=== PATIENT | male | born 1940 | race African-American/Black ===

== ENCOUNTER 2016-10-30 05:37 | Inpatient (IN) | payer MEDICARE, OTHER ==
[~2016-10-30] VITALS: Ht 175.3 cm; Wt 95.9 kg
[2016-10-30] VITALS (13 sets, daily range): BP systolic 109–153; BP diastolic 54–88; PULSE 53–76; RESP 14–18; O2SAT 93–100
[2016-10-30] MEDS: Lactated Ringer's 1,000 ML IV SCH ×3 (05:00→07:31)
[~2016-10-30 05:37] MED LIST: ACET-2766 PO; AMLO10TA3 PO; BUSP10TA2 PO; CALC-72 PO; CITA20TA11 PO; FLUT16SP NS; LISI40TA PO; TAMS0.4C98 PO
[2016-10-30] MEDS ORDERED: Vancomycin 1,000mg/200 mL NS IV ONE (05:57)
[2016-10-30] MEDS ORDERED: Vancomycin Inj 1,500 MG in 0.9% Sodium Chloride 500 ML IV ONE (06:00)
[2016-10-30] MEDS ORDERED: CeFAZolin Inj 2 GM in IV Premix 1 EACH IV ONE (06:00)
[2016-10-30] MEDS ORDERED: ASPI-973 PO (06:50)
[2016-10-30] MEDS ORDERED: Bupivacaine Liposome 1.3% 20 mL Inj ONE (07:36)
[2016-10-30] MEDS ORDERED: 0.9% Sodium Chloride 10 mL Inj INFILTRATE ONE (08:23)
[2016-10-30] MEDS ORDERED: Lactated Ringer's 1,000 ML IV SCH (08:31)
[2016-10-30] MEDS ORDERED: Lactated Ringer's 500 ML IV PRN (08:31)
[2016-10-30] MEDS ORDERED: fentaNYL-PF 50 mCg/mL 2 mL Inj IVPUSH PRN (08:35)
[2016-10-30] MEDS ORDERED: Dexamethasone 4 mg/mL Inj IVPUSH PRN (08:35)
[2016-10-30] MEDS ORDERED: Ondansetron 2 mg/mL 2 mL Inj IVPUSH PRN (08:35)
[2016-10-30] MEDS ORDERED: MetoCLOpramide 5 mg/mL 2 mL Inj IVPUSH PRN (08:35)
[2016-10-30] MEDS ORDERED: Phenylephrine 10,000 mCg/mL Inj IVPUSH PRN (08:35)
[2016-10-30] MEDS ORDERED: EPHEDrine Sulfate 50 mg/mL Inj IVPUSH PRN (08:35)
--- NOTE | 2016-10-30 08:39 | PCM.HPANE ---
Patient Data Surgeon Admitting Provider: Attending Provider:Luke Davis DO Primary Care Physician:Andrey Crowder MD Other Provider:Foreign Edwards Anesthesia Reason for Visit Right Knee Arthritis Ht/WT & BMI Height (Feet): 5 Height (Inches): 9.00 Weight (Kilograms): 95.9 Body Mass Index 31.00 Allergies Coded Allergies: morphine (Verified Allergy, Unknown, unknown- states was told not to have again after last surger, 10/26/16) Past Anesthesia History Anesthesia History: Denies:: Abnormal Airway, Anesthesia Reactions (unable to do spinal due to arthritis back ), Difficult Intubation, Fam Anesthesia Reaction Diabetes History Hx Diabetes?: No MRSA MRSA: No Medications Blood Thinner: Aspirin Hypertension Medication: Yes Home Meds Incl Beta Armando: No Reported Medications Aspirin 81 Mg [id number] Mg PO DAILY Ref 0 10/30/16 Acetaminophen (Tylenol Arthritis)650 Mg Tablet.er1,300 Mg PO Q12H PRN For Pain 10/26/16 Tamsulosin (Flomax)0.4 Mg Capsule0.4 Mg PO DAILY Ref 0 10/26/16 Lisinopril 40 Mg Kfkpwd19 Mg PO DAILY 30 Days Ref 0 10/26/16 Fluticasone Propionate (Fluticasone Propionate Nasal)16 Gm [place].susp2 [place] NS BID PRN allergy sx #16 GM Ref 0 10/26/16 Citalopram 20 Mg [id number] Mg PO DAILY Ref 0 10/26/16 Calcium Carbonate/Vitamin D3 (Calcium 500 + Vit D 200 Tablet)1 Each Tablet1 Each PO DAILY 10/26/16 Buspirone 10 Mg Shnvrt25 Mg PO BID Ref 0 10/26/16 Amlodipine 10 Mg Ydofsk19 Mg PO DAILY Ref 0 10/26/16 History HEENT History: Denies:: Abnormal Airway Cataracts Difficult Intubation Dysphagia Glaucoma Hearing Problem Sinus Problem TMJ Denture Type: Partial- Upper Hx of Heart Problems?: Yes Cardiovascular History: Positive for:: Hypertension Thrombophlebitis (DVT more than 30 years ago ) Denies:: AICD Heart Murmur Irregular Heartbeat Pacemaker Peripheral Vascular Rheumatic Fever Hx of Respiratory Problem?: No Respiratory History: Denies:: Asthma (childhood ) COPD Emphysema Oxygen Administration Pneumonia Tuberculosis Use of C-PAP Machine Use of Inhalers / NEBS Hx Neurologic Problems?: No Neurological History: Denies:: Alzheimer's Disease CVA Dementia Dizziness Headaches Multiple Sclerosis Parkinson's Disease Seizures TIA Hx of GI Problems?: No Gastrointestinal History: Positive for:: Hepatitis (hep C treated with interferon ) Denies:: Cirrhosis Gall Bladder Disease Gastroesphageal Reflux Gastrointestinal Bleeding Heartburn Hiatal Hernia Liver Disease Rectal Bleeding Hx of Problems?: No Genitourinary History: Denies:: Kidney Stones Urinary Tract Infection Male Hx: Positive for:: Prostate Problems (BPH) Denies:: Scrotal Mass Testicular Surgery Skin History: Denies:: History Skin Disorders? Pressure Ulcers Hx Musculoskeletal Problems?: Yes Musculoskeletal History: Positive for:: Back Injury (stenosis) Joint Replacement (left total knee ) Musculoskeletal Trauma (right knee current admission problem) Osteoarthritis Denies:: Fibromyalgia Systemic Lupus Hx of Psycho/Social Problems?: Yes Psycho Social History: Positive for:: Anxiety Hx Depression Hx Surgeries?: Yes (left total knee ) Hx Any Other Health Problems?: Yes Other History: Denies:: Cancer Thyroid Disease History Blood Transfusions: Positive for:: Accept Blood Products? Denies:: Blood Transfusions Hx Diabetes: No Hx Alcohol Use: YesAlcoholic Drinks Per Day: couple of beers weeklyHx Substance Use: No (marijuana (not lately))Have You Smoked inLast 12 mo: No Stop/Bang P-Blood Pressure: treated: Yes B- Body Mass Index > 35 kg/m2: No A- Age over 50: Yes N- Neck Large Circumference: No G- Gender Male: Yes Risk Assessment Category Category 1A: Patient has history of documented sleep apnea, and HAS NOT received any narcotic, sedative or anesthesia administration during this stay. Category 1B: Patient has history of documented sleep apnea, and HAS received any narcotic , sedative or anesthesia administration during this stay Category 2: Patient has SUSPECTED Obstructive Sleep Apnea, and HAS received any narcotic , sedative or anesthesia administration during this stay. Category 3: Patient has SUSPECTED Obstructive Sleep Apnea and HAS NOT received narcotic, sedative or anesthesia administration during this stay. Category 4: Outpatient in Procedural Areas with known sleep apnea or who screen positive for High Risk via the STOP/BANG questionnaire. Exam Exam Vital Signs Vital Signs Date Time Temp Pulse Resp B/P Pulse Ox O2 Delivery O2 Flow Rate FiO2 10/30/16 06:10 36.1 53 18 152/73 98 Room Air General Appearance: Alert, Oriented X3, Cooperative HEENT/AIRWAY: MP 2 Lungs: Normal Air Movement Heart: Exam Unremarkable Meds/Labs/Diagnostics Admission Meds Current Medications Lactated Ringer's 1,000 ml @ 10 mls/hr Q24H IV Last administered on 10/30/16 07:31; Start 10/30/16 at 05:00; Stop 11/03/16 at 08:59 Cefazolin Sodium/ Dextrose/Premix (Ancef Inj / D5W 50mL/IV Premix) 50 ml @ 100 mls/hr ONCE ONCE IV Last administered on 10/30/16 07:55; Start 10/30/16 at 06: 00; Stop 10/30/16 at 06:29; Status DC Bupivacaine HCl (Exparel 1.3% Inj) 20 ml STK-MED ONCE .ROUTE Last administered on 10/30/16 07:37; Start 10/30/16 at 07:36; Stop 10/30/16 at 07:37; Status DC Sodium Chloride (Normal Saline Inj) 20 ml STK-MED ONCE INFILTRATE Last administered on 10/30/16 08:23; Start 10/30/16 at 08:23; Stop 10/30/16 at 08:26; Status DC Plan Impression Patient chart reviewed, patient interviewed and anesthestic plan with risks, benefits, and alternatives discussed, and informed consent obtained. NPO Status: 1000PM ASA Physical Status: ASA2 Mod Systemic Disease Anesthetic Plan: GA Bene/Risks/Altern/Consents: Yes HP Complete Prior to Induction: Yes Migue Maher MD Oct 30, 2016 08:39
[2016-10-30] MEDS ORDERED: Lactated Ringer's 1,000 ML IV ONE (08:44)
[2016-10-30] MEDS ORDERED: HYDROmorphone 2 mg/mL Inj IVPUSH PRN (10:10)
[2016-10-30] MEDS ORDERED: Magnesium Hydroxide 10 mL Oral Concentration PO PRN (10:10)
[2016-10-30] MEDS ORDERED: diphenhydrAMINE 25 mg Capsule PO PRN (10:10)
--- NOTE | 2016-10-30 10:26 | PCM.ANEP1 ---
Post Anesthesia Phase 1 PACU Phase 1 Assessment Vital Signs Vital Signs Date Time Temp Pulse Resp B/P Pulse Ox O2 Delivery O2 Flow Rate FiO2 10/30/16 06:10 36.1 53 18 152/73 98 Room Air Anesthetic Administered: GA Level of Alertness: Sleepy, easy to arouse CONNER's with Equal Strength: No Pain: No Nausea or Vomiting: No Oxygen Delivery: Simple Mask Lungs: Normal Air Movement Dermatome Level: Full Sensation Migue Maher MD Oct 30, 2016 10:26
--- NOTE | 2016-10-30 10:29 | PCM.ANEP2 ---
Post Anesthesia Evaluation ASA/CMS Post Anesthesia VS in Patient's Normal Range?: Yes Resp Stable; Airway Patent?: Yes CV Function & Hydration Stable: Yes Mental Status Recovered?: Yes Pain control Satisfactory?: Yes N/V Control Satisfactory?: Yes Migue Maher MD Oct 30, 2016 10:29
--- NOTE | 2016-10-30 11:58 | OP ---
[address] [address] OPERATIVE REPORT PATIENT: JIGNESH DIOP : 1940 MR#: [id number] ADMIT: 10/30/2016 JOB ID: [id number] DATE OF SURGERY: 10/30/2016 PREOPERATIVE DIAGNOSIS(ES): Right knee degenerative joint disease. POSTOPERATIVE DIAGNOSIS(ES): Right knee degenerative joint disease. PROCEDURE: Right total knee arthroplasty. SURGEON: Luke Davis DO SUPERVISOR ORE DRESSING: Stephanie Lee PA-C INDICATIONS: The patient is a 76-year-old male with right knee severe degenerative arthritis who has failed conservative measures and wished to proceed with a right total knee arthroplasty. We discussed the risks, benefits, and possible complications of surgery. All questions were answered, and he wished to proceed. A surgical elastic knitter hand frame was required for the successful completion of this procedure. PROCEDURE IN DETAIL: The patient was brought to the operating room. He was given a preoperative antibiotic and general anesthetic with adductor canal block. The right lower extremity was sterilely prepped and draped. A tourniquet was used for hemostasis. An incision was made longitudinally over the medial aspect of the knee. Dissection was carefully carried through the subcutaneous tissue. Electrocautery was used for hemostasis. The quad tendon was then opened up in line with its fibers, leaving a cuff of tissue for repair. This was taken along the medial retinaculum down onto the proximal medial tibial face. The patella was then everted. A small portion of the fat pad was removed as was a portion of the anterior horn, medial and lateral meniscus. Some subperiosteal medial release was performed at this time, and the patella was everted. The femur was then instrumented with the intramedullary guide, and a 6 degree distal valgus cut angle was chosen. The block was pinned into position with an 11 mm planned resection, and the cut was performed completed with an osteotome. The femur was then sized, felt to be a size 5. A 3 degree external rotation guide was placed and the drill holes were made. Next, the four-in-one cutting block was placed onto the femur and the distal femoral cuts were performed. I did some posterior release with an osteotome as well, especially posterior medial. Next, the tibia was addressed with an extramedullary tibial cutting guide placed parallel to the long axis of the tibia and with the 5 degree slope, the block was pinned in position. The cut was performed, completed with an osteotome, and a wafer of bone was removed. The remainder of the medial and lateral menisci were removed. The knee was then trialed with the 5 cruciate retaining DePuy signal femur and the 4 tibia which seemed to fit quite nicely, although he was still fairly tight medially. Some additional medial release was performed, removing osteophytes as well as a subperiosteal release. Next, the femur was drilled. The tibia was drilled and punched. The patella was resurfaced with a free hand type technique, cut from initial thickness of 25 to a thickness of 15. A 38 mm patellar button was chosen, drilled for and trialed and had excellent tracking. The bony surfaces were then washed and dried, and the components were cemented into position beginning with the cruciate retaining fixed bearing 4 tibia, followed by the 5 femur and the 38 mm patellar button. All excess cement was removed. Once the cement had been allowed to polymerize, we again trialed and elected to go with a size 8 thickness, curved poly insert which was inserted without difficulty. Again, the tourniquet was let down. Electrocautery was used for hemostasis. The wound was then closed with #1 Vicryl and 0-Vicryl. The subcu was closed with 2-0 Vicryl and the skin was closed with a running subcuticular V-Loc suture. Exparel diluted, about half was added as an adjunct local anesthetic. Sterile dressings were applied. The patient tolerated the procedure well. BLOOD LOSS: 50 cc. POSTOPERATIVE COURSE: Per protocol, have the patient weightbear to tolerance. Use walker for ambulation. Will plan for Xarelto for DVT prophylaxis as the patient had thrombocytopenia with Lovenox in the past. Plan Percocet for postop pain.
--- NOTE | 2016-10-30 12:18 | DRSVH ---
PROCEDURE: X-RAY RIGHT KNEE, ONE OR TWO VIEWS ([id number]) INDICATIONS: post op TECHNIQUE: 2 view(s) of the knee acquired. COMPARISON: None. FINDINGS: Bones: Patient is status post knee joint arthroplasty. Hardware components are in expected position s. Visualized bony structures are intact. Soft tissues: Overlying postoperative changes are noted. IMPRESSION: Expected alignment status post right TKA. Dictated by: Andrew Richards [facility] Interpreted: Bria Watts MD on 10/30/2016 at 12:17 Transcribed by: ART on 10/30/2016 at 12:18 Approved by: Bria Watts MD, PhD on 10/31/2016 at 11:00
[2016-10-30] MEDS ORDERED: Propofol 10,000 mCg/mL 20 mL Inj ONE (12:19)
[2016-10-30] MEDS ORDERED: Ondansetron 2 mg/mL 2 mL Inj ONE (12:19)
[2016-10-30] MEDS ORDERED: Dexamethasone 4 mg/mL Inj ONE (12:19)
[2016-10-30] MEDS ORDERED: Glycopyrrolate 0.2 mg/mL 5 mL Inj ONE (12:19)
[2016-10-30] MEDS ORDERED: fentaNYL-PF 50 mCg/mL 2 mL Inj ONE (13:19)
[2016-10-30] MEDS ORDERED: HYDROmorphone 2 mg/mL Inj ONE (13:27)
[2016-10-30] MEDS: Acetaminophen IV 1,000 MG in IV Premix 1 EACH IV PRN ×2 (13:37→19:51)
--- NOTE | 2016-10-30 13:42 | NUR ---
Arrival to 1028 Pt arrival to 1028 at 1300. Pt is denying pain and nausea and requesting food. Wiggles toes and has sensation in lower leg, alert and oriented. Drew wrap is CDI, SCD on L leg. OSC orientation video played for pt and , Nyasia. Snacks provided and lunch ordered. Will continue to monitor closely.
[2016-10-30] MEDS: oxyCODONE-Acetamin 5-325 mg Tablet PO PRN ×2 (14:08→18:14)
[2016-10-30] MEDS: 0.9% Sodium Chloride 1,000 ML IV SCH (14:09)
[2016-10-30 15:03] LABS: APPEARANCE,URINE HAZY (CLEAR,HAZY); COLOR,URINE STRAW (YELLOW)
[2016-10-30 15:04] LABS: OCCULT BLOOD,URINE NEGATIVE (NEGATIVE); UROBILINOGEN,URINE NORMAL (NORMAL)
[2016-10-30] MEDS: Ondansetron 2 mg/mL 2 mL Inj IVPUSH PRN ×2 (15:09→20:32)
[2016-10-30] MEDS ORDERED: CeFAZolin Inj 2 GM in IV Premix 1 EACH IV SCH (16:30)
[2016-10-30] MEDS: Ketorolac 15 mg/mL Inj IVPUSH PRN (16:39)
[2016-10-30] MEDS: CeFAZolin Inj 2 GM in Dextrose 5% 50 ML IV SCH (17:34)
[2016-10-30] MEDS: Sodium Chloride LOK Flush 10 mL Syringe IV SCH (17:36)
[2016-10-30] MEDS: hydrOXYzine Pamoate 25 mg Capsule PO PRN (17:36)
[2016-10-30] MEDS: Senna-Docusate 8.6-50 mg Tablet PO SCH (19:50)
--- NOTE | 2016-10-30 23:02 | NUR ---
Activity/Dizziness Pain is not relieved by recent dose of percocet but Pt requests to ambulate to BR 1999, prior to ambulation he states that he does feel dizzy occasionally- only when arising from bed. SBA with FWW to BR. After BR he lays in bed and is given IV APAP for pain. 2030 pt reports feel dizzy, flushed, and SOB, nausea- given cold washcloth, 2L nc, and HOB elevated. Symptoms subside in 10 minutes, pt states some nausea remains and is given zofran 8mg IV. Pt is asked to use urinal for rest of shift. Care continues
[2016-10-31] VITALS (7 sets, daily range): BP systolic 151–220; BP diastolic 72–108; PULSE 62–75; RESP 16–20; O2SAT 97–100
[2016-10-31] MEDS: 0.9% Sodium Chloride 1,000 ML IV SCH ×3 (00:28→16:06)
[2016-10-31] MEDS: CeFAZolin Inj 2 GM in Dextrose 5% 50 ML IV SCH (00:29)
[2016-10-31] MEDS: Sodium Chloride LOK Flush 10 mL Syringe IV SCH ×3 (00:30→18:02)
[2016-10-31] MEDS: oxyCODONE-Acetamin 5-325 mg Tablet PO PRN ×4 (04:32→18:22)
[2016-10-31 07:22] LABS: BASOPHILS % (AUTO) 0.1 % (0-3); EOSINOPHILS % (AUTO) 0 % (0-5); MONOCYTES % (AUTO) 12.7 % (4-12); Mean Corpuscular Volume 79.1 fL (81-100); NEUTROPHILS % (AUTO) 71.1 % (40-74); Platelet Count 156 bil/L (150-400)
[2016-10-31] MEDS: Senna-Docusate 8.6-50 mg Tablet PO SCH ×2 (09:16→21:12)
[2016-10-31] MEDS: hydrOXYzine Pamoate 25 mg Capsule PO PRN ×3 (09:16→18:22)
[2016-10-31] MEDS ORDERED: Fluticasone 0.05% 15 Spray/2 Gm 16 Gm Nasal Spray NOSTRIL PRN (11:50)
[2016-10-31] MEDS: Ketorolac 15 mg/mL Inj IVPUSH PRN (13:48)
--- NOTE | 2016-10-31 14:43 | PCM.PNORTH ---
Subjective Date of Service: Oct 31, 2016 Visit Information: Reason for Visit Right Knee Arthritis Surgery/Surgery Date RIGHT TOTAL KNEE 10/30/16 Post-Op Day # Date of Admission: Oct 30, 2016 at 12:59 Hospital Day # Subjective Status post day #1 right total knee arthroplasty. Patient states he is doing well. He has been up and walking and using the bathroom. He is currently eating and not feeling nauseated. Happy with his progression so far, would be excited to go home tomorrow if possible. Postop General: No Complaints, No Shortness of Breath, No Chest Pain Objective Exam Objective Patient is alert and oriented 3. Answering questions appropriately. Sitting up in bed and not in any acute distress today. Dressing is clean dry and intact. Patient able to wiggle toes. Calf is soft and non-tender, pulses intact, sensation is full. Vital Signs and I/O Vital Sign - Last Date Time Temp Pulse Resp B/P Pulse Ox O2 Delivery O2 Flow Rate FiO2 10/31/16 13:51 Room Air 10/31/16 13:29 36.4 75 18 190/78 99 10/31/16 04:50 1.00 Intake and Output 10/30/16 10/30/16 10/31/16 Cumulative From/Thru 15:00 23:00 07:00 10/26/16 11:48 - 10/31/16 04:28 Intake Total 1650 ml 1398 ml 3048 ml Output Total 50 ml 750 ml 800 ml Balance 1600 ml 648 ml 2248 ml Intake Oral 800 ml 800 ml IV Total 1650 ml 598 ml 2248 ml Output Urine Total 750 ml 750 ml Estimated Blood Loss 50 ml 50 ml Lab & Micro Results Laboratory Tests Test 10/30/16 14:45 10/31/16 06:55 Urine Color Straw (YELLOW) Urine Appearance Hazy (CLEAR,HAZY) Urine pH 7.0 (5.0-8.0) Urine Specific [place] 1.010 (1.003-1.035) Urine Protein Negativemg/dL (NEG,TRACE) Urine Glucose (UA) Negativemg/dL (NEGATIVE) Urine Ketones Negativemg/dL (NEGATIVE) Urine Occult Blood Negative (NEGATIVE) Urine Nitrite Negative (NEGATIVE) Urine Bilirubin Negative (NEGATIVE) Urine Urobilinogen Normalmg/dL (NORMAL) Urine Leukocyte Esterase Negative (NEGATIVE) Urine RBC 0-2/hpf (0-2) Urine WBC 0-5/hpf (0-5) Urine Epithelial Cells Occasional/hpf (NONE-MOD) Urine Crystals None seen (NONE SEEN) Urine Bacteria None/hpf (NONE-FEW) Urine Hyaline Casts None/lpf (NONE) Urine Granular Casts None seen (NONE SEEN) Urine Waxy Casts None seen (NONE SEEN) Urine Red Blood Cell Casts None seen (NONE SEEN) Urine White Blood Cell Casts None seen (NONE SEEN) Urine Mucus None seen (None Seen) Urine Trichomonas None seen (NONE SEEN) Urine Yeast None (NONE SEEN) Urinalysis Comment None Urine Culture Reflexed Not indicated White Blood Count 9.3th/mm3 (3.8-10.1) Red Blood Count 4.40mil/mm3 (4.40-5.80) Hemoglobin 11.9g/dL (13.8-17.2) Hematocrit 34.8% (41.0-50.0) Mean Corpuscular Volume 79.1fL (81-100) Mean Corpuscular Hemoglobin 27.0pg (27.0-35.0) Mean Corpuscular Hemoglobin Concent 34.2% (32.0-37.0) Red Cell Distribution Width 14.0% (12.3-15.4) Platelet Count 156bil/L (150-400) Neutrophils (%) (Auto) 71.1% (40-74) Lymphocytes (%) (Auto) 16.1% (14-46) Monocytes (%) (Auto) 12.7% (4-12) Eosinophils (%) (Auto) 0% (0-5) Basophils (%) (Auto) 0.1% (0-3) Sodium Level 139mEq/L (134-144) Potassium Level 4.4mEq/L (3.5-5.2) Chloride Level 104mEq/L (97-108) Carbon Dioxide Level 22mmol/L (18-29) Blood Urea Nitrogen 18mg/dL (8-27) Creatinine 1.06mg/dL (0.76-1.27) Estimat Glomerular Filtration Rate 73mL/min (>59) Glucose Level 131mg/dL (60-99) Calcium Level 8.5mg/dL (8.5-10.1) Result Diagram: 10/31/1655 10/31/1655 Assessment & Plan Impression Status post day #1 right total knee arthroplasty. Patient doing very well, pain controlled. Walking well with physical therapy, has not accomplished step training yet.. Problems: Plan Patient will continue to work with physical therapy for gait training with front -wheeled walker, will need to accomplish step training. Weightbearing as tolerated. We will plan to change dressing tomorrow, postop day #2. Patient has began taking Xarelto 10 mg by mouth daily for DVT prophylaxis as he had some previous thrombocyte issues with Lovenox. Anticipate the patient will be able to be discharged to home tomorrow postop day 2 if still progressing very well.. Pako Brown PA-C Oct 31, 2016 14:43
--- NOTE | 2016-10-31 15:54 | NUR ---
Social Work/Assessment: D&A: Reviewed chart. Pt. is a 76yr old male admitted to [facility] for elective right TKA performed on 10-30-16. Pt.'s PCP is Dr. Crowder and primary payor is Medicare. Pt. resides with spouse/Nyasia. Currently PT evaluation pending. Per Ortho/nrsg notes from today pt. is progressing well. Pt. alert and oriented, ambulating in room with FWW and SBA. Dressing change and stair training expected tomorrow. P: Anticipate home with spouse when medically stable. SW to continue to follow closely and review therapy evaluation when it is available. JOSH Hicks
[2016-10-31] MEDS: BusPIRone 15 mg Dividose Tablet PO SCH (18:02)
--- NOTE | 2016-10-31 18:30 | NUR ---
Blood pressure Pt hypertensive on day shift. BP at start of shift was 190/78, PA notified and stated he would restart home BP medications. Lisinopril ordered but Amlodipine was not. BP after Lisinopril given was 168/78. Follow up page with ROSALIND got Amlodipine dose restarted at 1730. BP at time dose was given was 220/108. Pt also medicated for pain at this time. Will recheck BP at 1900.
[2016-11-01] MEDS: Sodium Chloride LOK Flush 10 mL Syringe IV SCH ×2 (00:48→09:30)
[2016-11-01] MEDS: 0.9% Sodium Chloride 1,000 ML IV SCH ×2 (01:17→12:06)
[2016-11-01] MEDS: hydrOXYzine Pamoate 25 mg Capsule PO PRN ×2 (01:40→13:22)
[2016-11-01] MEDS: oxyCODONE-Acetamin 5-325 mg Tablet PO PRN ×3 (01:41→13:22)
--- NOTE | 2016-11-01 05:12 | NUR ---
Hypertension Patient BP- 174/59 @ 1920, 192/78 @ 1954. Denies CP, SOB, and Abdominal discomfort. Pain medication requested one time throughout shift.
[2016-11-01 06:02] VITALS: BP 199/101; PULSE 74; RESP 16; O2SAT 97
[2016-11-01 06:03] VITALS: BP 179/85; PULSE 74
[2016-11-01 07:56] LABS: BASOPHILS % (AUTO) 0.1 % (0-3); EOSINOPHILS % (AUTO) 0.1 % (0-5); MONOCYTES % (AUTO) 12.8 % (4-12); Mean Corpuscular Hemoglobin 27.3 pg (27.0-35.0); Mean Corpuscular Volume 79.5 fL (81-100); NEUTROPHILS % (AUTO) 66.5 % (40-74); Platelet Count 141 bil/L (150-400)
[2016-11-01] MEDS: BusPIRone 15 mg Dividose Tablet PO SCH (09:31)
[2016-11-01] MEDS: Senna-Docusate 8.6-50 mg Tablet PO SCH (09:31)
--- NOTE | 2016-11-01 11:52 | PCM.PNORTH ---
Subjective Date of Service: Nov 01, 2016 Visit Information: Reason for Visit Right Knee Arthritis Surgery/Surgery Date RIGHT TOTAL KNEE 10/30/16 Post-Op Day # 2 Date of Admission: Oct 30, 2016 at 12:59 Hospital Day # Subjective Patient feels he is doing quite well with physical therapy. He would like to be discharged home today. He has a long drive and would like to leave soon. Postop General: No Complaints, No Shortness of Breath, No Chest Pain Pain Management: PO Objective Exam Objective Patient is seen sitting up in bed Vital Signs and I/O Vital Sign - Last Date Time Temp Pulse Resp B/P Pulse Ox O2 Delivery O2 Flow Rate FiO2 11/01/16 10:41 Room Air 11/01/16 06:03 74 179/85 11/01/16 06:02 36.7 16 97 10/31/16 04:50 1.00 Intake and Output 10/31/16 10/31/16 11/01/16 Cumulative From/Thru 15:00 23:00 07:00 10/26/16 11:48 - 11/01/16 06:02 Intake Total 2475 ml 1630 ml 400 ml 7553 ml Output Total 750 ml 1505 ml 1150 ml 4205 ml Balance 1725 ml 125 ml -750 ml 3348 ml Intake Oral 1600 ml 1630 ml 400 ml 4430 ml IV Total 875 ml 3123 ml Output Urine Total 750 ml 1505 ml 1150 ml 4155 ml Estimated Blood Loss 50 ml # Voids 5 5 # Bowel Movements 0 0 0 0 Lab & Micro Results Laboratory Tests Test 11/01/16 07:20 White Blood Count 9.9th/mm3 (3.8-10.1) Red Blood Count 4.29mil/mm3 (4.40-5.80) Hemoglobin 11.7g/dL (13.8-17.2) Hematocrit 34.1% (41.0-50.0) Mean Corpuscular Volume 79.5fL (81-100) Mean Corpuscular Hemoglobin 27.3pg (27.0-35.0) Mean Corpuscular Hemoglobin Concent 34.3% (32.0-37.0) Red Cell Distribution Width 14.3% (12.3-15.4) Platelet Count 141bil/L (150-400) Neutrophils (%) (Auto) 66.5% (40-74) Lymphocytes (%) (Auto) 20.3% (14-46) Monocytes (%) (Auto) 12.8% (4-12) Eosinophils (%) (Auto) 0.1% (0-5) Basophils (%) (Auto) 0.1% (0-3) Sodium Level 137mEq/L (134-144) Potassium Level 4.4mEq/L (3.5-5.2) Chloride Level 102mEq/L (97-108) Carbon Dioxide Level 22mmol/L (18-29) Blood Urea Nitrogen 17mg/dL (8-27) Creatinine 0.89mg/dL (0.76-1.27) Estimat Glomerular Filtration Rate 89mL/min (>59) Glucose Level 116mg/dL (60-99) Calcium Level 8.5mg/dL (8.5-10.1) Result Diagram: 11/01/1671911/01/16719 General Appearance: Alert, Oriented X3, Cooperative, No Acute Distress Extremities: Distal Pulses Palpable, Warm, No Compartment Syndrom Noted, Thigh & Calf Soft/Nontender Postop Sensory Motor: Distal Motor Intact, NVI Distally SURGICAL WOUND : Wound Location/Description Anterior right knee Incision General Appearance: Steri Strips, Intact, Well Approximated Dressing & Drainage Status: Changed (with Silverlon dressing, ABDs and a fishnet stocking) Activity: Activity per PT, Ambulate with PT Catheters: None Assessment & Plan Impression Status post right total knee arthroplasty Problems: Plan Weightbearing: Weightbearing as tolerated with walker DVT prophylaxis: Xarelto 10 mg PO QD x 14 days followed by aspirin 325 mg twice a day 4 weeks Physical therapy for transfers, progressive ambulation, therapeutic exercise Wound care: Dressing change today Silverlon and AVD Discharge instructions are reviewed Discharge plan: Discharge home today. Start outpatient physical therapy next week Follow-up plan: In 2 weeks at [facility] with ROSALIND for wound check and at [address] Davis with x-rays Pain Management: Percocet VTE Prophylaxis: SCDs, GRISELDA Hose, Other (Xarelto) Resuscitation Status: CPR: Attempt Resuscitation DoravilleStephanie Curiel PA-C Nov 01, 2016 11:52
--- NOTE | 2016-11-01 11:59 | PCM.DIORTH ---
Ortho Discharge Instruction Date of Service: Nov 01, 2016 Dates of Hospitalization Date of Hospital Admission Oct 30, 2016 at 12:59 Providers Admitting Physician: Luke Davis DO Primary Care Physician: Andrey Crowder MD Attending Physician: Luke Davis DO Diet Discharge Diet: No restrictions Activity Discharge Activity-General: Balance rest and activity, Elevate & ice extremity , May drive in (1 month) Right Lower Extremity: Weight Bearing as tolerated Discharge Assist Device: Front Wheeled Walker Dressing and Incisional Care Discharge Dressing Care: Keep dressing clean, dry & intact Discharge Hygiene: May shower (see instructions below), DO NOT soak incision under water, NO bathtub, hot tub or whirlpool Additional Instructions Discharge Instructions Ice the knee 6-8 times a day for 20-30 minutes at a time Every hour of the day that you are awake, get up and walk or do some of the exercises. Gradually increase each day Push yourself with bending and straightening the knee. It will hurt but you need to push yourself. Every afternoon lay down with the leg up on pillows above the level of the heart to help decrease swelling. Do not place a pillow under the knee - only under the calf Dressing: use the Silver dressing and pad for 3-4 more days.Handle the silver pad only by the corners Continue wearing thigh-high compression stockings for 3-4 weeks. Do not wear the fishnet under the compression stocking Start out-patient PT next week DVT Prophylaxis: (prevent blood clots) Xarelto 10 mg per day for a total of 2 weeks, followed by aspirin 325 mg twice a day for 4 more weeks. Followup at [facility] in 2 weeks with PA for wound check, and at [address] Davis with x-rays Follow Up Plan Follow Up Plan Followup at [facility] in 2 weeks with PA for wound check, and at [address] Davis with x-rays Call your provider for: Fever, Chills, Shortness of breath, Vomitting, Drainage at incision Stephanie Lee PA-C Nov 01, 2016 11:59
[2016-11-01] MEDS ORDERED: RIVA10TA PO (12:02)
[2016-11-01] MEDS ORDERED: OXYC1TAB24 PO (12:02)
--- NOTE | 2016-11-01 12:04 | PCM.DC.ORT ---
Discharge Summary Date of Service: Nov 01, 2016 Date of Hospital Admission: Oct 30, 2016 at 12:59 Date of Surgery: Oct 30, 2016 Date of Discharge: Nov 01, 2016 Reason for Hospitalization: Right knee arthritis Procedures Performed: Right total knee arthroplasty Hospital Course: The patient was admitted to the hospital on 10/30/2016 and underwent the above procedure. Antibiotic prophylaxis consisting of Ancef and vancomycin. The surgeon was Dr. Davis. Patient tolerated the procedure well and was transferred to recovery room in stable condition. Patient had physical therapy to work on ambulation and transfers. Weightbearing as tolerated with walker. Pain was managed with Dilaudid, Percocet, Vistaril, Toradol. DVT prophylaxis: Xarelto 10 mg PO Q Day, SCD's and Aric hose. Patient progressed well with physical therapy and on POD-2 was discharged home. Follow-up: at [facility] 2 weeks postop for wound check and at [address] Davis with x-ray Diagnosis at Time of Discharge Status post right TKA Problems: Disposition: Discharged home in stable condition with his to assist in his care. Discharge Instructions: Ice the knee 6-8 times a day for 20-30 minutes at a time Every hour of the day that you are awake, get up and walk or do some of the exercises. Gradually increase each day Push yourself with bending and straightening the knee. It will hurt but you need to push yourself. Every afternoon lay down with the leg up on pillows above the level of the heart to help decrease swelling. Do not place a pillow under the knee - only under the calf Dressing: use the Silver dressing and pad for 3-4 more days.Handle the silver pad only by the corners Continue wearing thigh-high compression stockings for 3-4 weeks. Do not wear the fishnet under the compression stocking Start out-patient PT next week DVT Prophylaxis: (prevent blood clots) Xarelto 10 mg per day for a total of 2 weeks, followed by aspirin 325 mg twice a day for 4 more weeks. Followup at [facility] in 2 weeks with PA for wound check, and at [address] Davis with x-rays Acetaminophen (Tylenol Arthritis) 650 Mg Tablet.er 1,300 MG PO Q12H PRN PRN For Pain Amlodipine (Amlodipine) 10 Mg Tablet 10 MG PO DAILY Buspirone (Buspirone) 10 Mg Tablet 10 MG PO BID Calcium Carbonate/Vitamin D3 (Calcium 500 + Vit D 200 Tablet) 1 Each Tablet 1 EACH PO DAILY Citalopram (Citalopram) 20 Mg Tablet 20 MG PO DAILY Fluticasone Propionate (Fluticasone Propionate Nasal) 16 Gm [place].susp 2 SPRAY NS BID PRN PRN allergy sx Lisinopril (Lisinopril) 40 Mg Tablet 40 MG PO DAILY Rivaroxaban (Xarelto) 10 Mg Tablet 10 MG PO DAILY Tamsulosin (Flomax) 0.4 Mg Capsule 0.4 MG PO DAILY oxyCODONE-Acetaminophen 5-325 mg (oxyCODONE-Acetaminophen 5-325 mg) 1 Each Tablet 1-2 TAB PO Q4H PRN PRN For Pain Stephanie Lee PA-C Nov 01, 2016 12:04
--- NOTE | 2016-11-01 12:11 | NUR ---
Social Work- Discharge Data: EMR reviewed. Pt is POD 2 for elective right TKA performed on 10-30-16. PT has cleared pt for outpt PT services. Per Ortho/nrsg notes pt alert and oriented, ambulating in room with FWW and SBA. Pt to discharge home with to transport via POV. No anticipated discharge needs. Assessment: [place] who will receive outpt PT. Plan: PT cleared pt for outpt PT services. Pt to discharge home with family to transport via POV. No anticipated discharge needs. Dorothy Thomas, INTERCHANGE AGENT
--- NOTE | 2016-11-01 14:16 | NUR ---
D/C'd Pt D/C'd via wheelchair with spouse at 1330. All pt belongings with pt, hard copy of Rx given to pt spouse, IV D/C'd intact, pt signed and stated understanding of d/c and follow up information. Medicated pt for pain/spasms prior to departure.
== END 2016-11-01 12:20 | disposition home or self-care (01) | DRG 470 ==
LOC: SAS 05:37 → OSC 12:59
PROVIDERS: ADMIT Orthopaedic Surgery; ATTEND Orthopaedic Surgery
PROC: 0SRC0J9 Replacement of Right Knee Joint with Synthetic Substitute, Cemented, Open Approach (ICD-10-PCS; principal; 2016-10-30 07:30)
DX: M17.11 Unilateral primary osteoarthritis, right knee (principal); I10 Essential (primary) hypertension